=== PATIENT | female | born 1995 | race Caucasian/White ===

== ENCOUNTER 2017-09-02 02:09 | Emergency (ER) | payer OTHER ==
[~2017-09-02] VITALS: Ht 170.2 cm; Wt 111.6 kg
[~2017-09-02 02:09] MED LIST: ORTHO TRI-CYCL1 EACH PO
[2017-09-02 03:16] LABS: BASOPHIL (%) 0.2 % (0-1); EOSINOPHIL (%) 1.5 % (0-5); EOSINOPHIL COUNT 0.2 K/uL (0-0.3); HEMATOCRIT 42.8 % (36.0-46.0); HEMOGLOBIN 13.4 G/DL (11.9-15.5); IMMATURE GRANULOCYTE (%) 0.5 % (0.0-0.7); LYMPHOCYTE (%) 21.4 % (15-42); LYMPHOCYTE COUNT 3.1 K/uL (1.0-2.8); MCH 27.1 PG (29.0-34.0); MCHC 31.3 G/DL (30.0-36.0); MCV 86.5 FL (83-99); MONOCYTE (%) 5.3 % (3-12); MONOCYTE COUNT 0.8 K/uL (0-0.8); NEUTROPHIL (%) 71.1 % (45-76); NEUTROPHIL COUNT 10.4 K/uL (1.8-6.4); PLATELET COUNT 414 K/uL (156-360); RBC DIS.WIDTH-CV 13.7 % (11.8-14.6); RBC DIS.WIDTH-SD 42.5 % (39-53); RED BLOOD COUNT 4.95 M/uL (3.80-5.20); WHITE BLOOD COUNT 14.7 K/uL (4.1-10.2)
[2017-09-02 03:28] LABS: ALBUMIN 4.3 g/dL (3.2-4.8); CHLORIDE 103 mEq/L (99-109); POTASSIUM 3.7 mEq/L (3.7-5.4); SODIUM 136 mEq/L (136-147)
[2017-09-02 03:30] LABS: GLUCOSE 103 mg/dL (70-99); TOTAL PROTEIN 7.7 g/dL (6.4-8.3)
[2017-09-02 03:32] LABS: TOTAL BILIRUBIN 0.7 mg/dL (0.0-1.0)
[2017-09-02 03:34] LABS: ALKALINE PHOSPHATASE 102 IU/L (3-129); CREATININE 0.8 mg/dL (0.6-1.3); GFR ESTIMATE (CALCULATED) > 59 mL/min/
[2017-09-02 03:35] LABS: UREA NITROGEN (BUN) 11 mg/dL (9-23)
[2017-09-02 03:36] LABS: AST (GOT) 23 IU/L (2-34)
[2017-09-02 03:37] LABS: ALT (GPT) 25 IU/L (3-49)
[2017-09-02 03:44] LABS: QUANTITATIVE HCG < 4.0 MIU/ML
[2017-09-02] MEDS ORDERED: TYLENOL WITH C1 EACH PO (06:51)
[2017-09-02] MEDS ORDERED: ZOFRAN ODT4 MG PO (06:51)
[2017-09-02 07:45] VITALS: BP 112/72
== END 2017-09-02 08:04 | disposition home or self-care (01) ==
LOC: EME 02:09
PROVIDERS: Physician Assistant
DX: S00.83XA Contusion of other part of head, initial encounter (principal); S09.8XXA Other specified injuries of head, initial encounter; T71.9XXA Asphyxiation due to unspecified cause, initial encounter; H11.33 Conjunctival hemorrhage, bilateral; T76.11XA Adult physical abuse, suspected, initial encounter
CPT/HCPCS: 70450; 70486; 70498; 80053; 84702; 85025; 99281; 99285; J2405; J3010; J7030